=== PATIENT | male | born 2000 | race Caucasian/White ===

== ENCOUNTER 2019-04-22 | Emergency (ER) | payer SELFPAY ==
[2019-04-21 23:24] VITALS: BP 119/80; PULSE 95; RESP 18; TEMP 36.4; O2SAT 100; BMI 21.1
[2019-04-21 23:37] VITALS: BP 113/77; PULSE 100; RESP 14; TEMP 36.4; O2SAT 98
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
--- NOTE | 2019-04-22 00:02 | PC.NURSE ---
PATIENT TO CT
--- NOTE | 2019-04-22 00:02 | PC.NURSE ---
PATIENT FACE CLEANED ON RIGHT SIDE ON LACERATION TO CHEEK WITH NORMAL SALINE AND PEROXIDE AND 4X4 GAUZE
[2019-04-22 01:41] VITALS: BP 109/71; PULSE 90; RESP 14; O2SAT 95
[2019-04-22 02:40] VITALS: BP 125/64; PULSE 109; RESP 12; O2SAT 96
== END 2019-04-22 02:47 | disposition home or self-care (01) ==
PROVIDERS: Emergency Provider Nurse Practitioner Family; Family Provider Family Medicine; PCP Pediatrics Adolescent Medicine
DX: S00.81XA Abrasion of other part of head, initial encounter (principal); Y00.XXXA Assault by blunt object, initial encounter; F17.210 Nicotine dependence, cigarettes, uncomplicated
CPT/HCPCS: 70486; 73060; 99281